=== PATIENT | female | born 1950 | race Caucasian/White ===

== ENCOUNTER → 2017-03-16 | Day surgery (SDC) | payer MEDICARE, OTHER ==
[~2017-03-16] VITALS: Ht 162.6 cm; Wt 45.5 kg
[2017-03-16] VITALS (9 sets, daily range): BP systolic 127–146; BP diastolic 66–98; PULSE 61–99; RESP 10–19; O2SAT 93–100
[~2017-03-16] MED LIST: Bupivacaine-MPF 0.5% 30 mL Inj NERVEBLOCK ONE; CHOL200025 PO; CeFAZolin 2 Gm/50 mL D5W IV Premix IV ONE; CeFAZolin Inj 2 gm / 50mL D5W IV ONE; Dexamethasone 4 mg/mL Inj IVPUSH PRN; Dexamethasone 4 mg/mL Inj ONE; EPHEDrine Sulfate 50 mg/mL Inj IVPUSH PRN; EPIN0.3P2 IJ; HYDROmorphone 1 mg/mL Inj IVPUSH PRN; IBUP-1827 PO; Ketamine 10 mg/mL 20 mL Inj ONE; Lactated Ringer's 1,000 ML IV SCH; Lactated Ringer's 500 ML IV PRN; MULT-1018 PO; Ondansetron 2 mg/mL 2 mL Inj IVPUSH PRN; Ondansetron 2 mg/mL 2 mL Inj ONE; Phenylephrine 10,000 mCg/mL Inj IVPUSH PRN; Propofol 10,000 mCg/mL 20 mL Inj ONE; VIT1TABL83 PO; fentaNYL-PF 50 mCg/mL 2 mL Inj ONE; oxyCODONE-Acetamin 5-325 mg Tablet PO ONE; oxyCODONE-Acetamin 5-325 mg Tablet PO PRN; vitamin c
[2017-03-16] MEDS: Lactated Ringer's 1,000 ML IV SCH ×2 (06:02→07:29)
--- NOTE | 2017-03-16 06:46 | PCM.HPANE ---
Patient Data Surgeon Admitting Provider: Attending Provider:Pipe Moore MD Primary Care Physician:Amy Quinonez PA-C Other Provider:Eugenie Siegel Anesthesia Reason for Visit Right First Metacarpal Fracture Ht/WT & BMI Height (Feet): 5 Height (Inches): 4 Weight (Kilograms): 45.54 Body Mass Index 17.00 Allergies Coded Allergies: codeine (Verified Allergy, Severe, hives / vomiting, 01/16/11) hydrocodone (Verified Allergy, Unknown, nausea, sweating, hives, 03/15/17) Uncoded Allergies: BEES STINGS (Allergy, Unknown, 03/15/17) Past Anesthesia History Anesthesia History: Denies:: Abnormal Airway, Anesthesia Reactions, Difficult Intubation, Fam Anesthesia Reaction, Malignant Hyperthermia Diabetes History Hx Diabetes?: No MRSA MRSA: No Medications Hypertension Medication: No Home Meds Incl Beta Matthew: No Reported Medications Cholecalciferol (Vitamin D3) (Vitamin D3)2,000 Unit Tablet2,000 Unit PO DAILY 03/15/17 [vitamin c] No Conflict CheckUnknown Dose DAILY 03/15/17 Vit B Comp/C/FA/Iron/Vit E (Vitamin B Complex Tablet)1 Each Tablet1 Each PO DAILY 03/15/17 Multivitamin (Multi Vitamin Daily)1 Each Tablet1 Each PO DAILY 30 Days Ref 0 03/15/17 Ibuprofen 600 Mg [id number] Mg PO QID PRN For Pain Ref 0 03/15/17 Epinephrine (Epipen 2-[place])0.3 Mg/0.3 Ml Auto.injct0.3 Mg IJ PRN For Anaphyllaxis 03/15/17 Discontinued Reported Medications Tramadol-Expunged Drug, Do Not Renew! (Ultram-Expunged Drug, Do Not Renew!)50 Mg Tab50 Mg PO PRN 01/16/11 IBUPROFEN-Expunged Drug, Do Not Renew! 800 Mg [id number] Mg PO PRN 01/16/11 History History of ENT Problems?: Yes HEENT History: Positive for:: Hearing Problem (hx menieres dx) Sinus Problem (hay fever allergies) Denies:: Abnormal Airway Cataracts Difficult Intubation Dysphagia Glaucoma TMJ Denture Type: Full- Upper Full- Lower Teeth Condition: No Teeth Hx of Heart Problems?: No Cardiovascular History: Denies:: AICD Abdominal Aortic Aneurism Atrial Fibrillation Edema Heart Murmur Hypertension Irregular Heartbeat Pacemaker Rheumatic Fever Hx of Respiratory Problem?: No Respiratory History: Positive for:: Pneumonia (remote hx of hx ) Denies:: Asthma COPD Emphysema Oxygen Administration Use of C-PAP Machine Hx Neurologic Problems?: Yes Neurological History: Positive for:: Headaches (several times weekly) Denies:: CVA Multiple Sclerosis Parkinson's Disease Seizures TIA Hx of GI Problems?: No Hx of Problems?: No Genitourinary History: Denies:: Kidney Stones Urinary Tract Infection Female Hx: Positive for:: Endometriosis Denies:: Currently (partial hysterectomy) Problems with Breasts? Skin History: Denies:: History Skin Disorders? Pressure Ulcers Hx Musculoskeletal Problems?: Yes Musculoskeletal History: Positive for:: Musculoskeletal Trauma (right 1st metacarpal fx-current admission problem) Osteoarthritis Denies:: Back Injury Degenerative Joint Fibromyalgia Joint Replacement Myasthenia Gravis Systemic Lupus Hx of Psycho/Social Problems?: No Psycho Social History: Denies:: Anxiety Hx Depression (situational with family deaths- ) Hx Surgeries?: Yes (tonsil, wrist surgery, partial hysterectomy) Hx Any Other Health Problems?: Yes Other History: Positive for:: Hospitalization Denies:: Cancer Endocrine Disease Thyroid Disease History Blood Transfusions: Positive for:: Accept Blood Products? Denies:: Blood Transfuse Reaction Blood Transfusions Hx Diabetes: No Hx Alcohol Use: YesAlcoholic Drinks Per Day: 3-4 drinks dailyHx Substance Use : NoHave You Smoked inLast 12 mo: Yes (1/2- 3/4 pack daily) Stop/Bang P-Blood Pressure: treated: No B- Body Mass Index > 35 kg/m2: No A- Age over 50: Yes N- Neck Large Circumference: No G- Gender Male: No Risk Assessment Category Category 1A: Patient has history of documented sleep apnea, and HAS NOT received any narcotic, sedative or anesthesia administration during this stay. Category 1B: Patient has history of documented sleep apnea, and HAS received any narcotic , sedative or anesthesia administration during this stay Category 2: Patient has SUSPECTED Obstructive Sleep Apnea, and HAS received any narcotic , sedative or anesthesia administration during this stay. Category 3: Patient has SUSPECTED Obstructive Sleep Apnea and HAS NOT received narcotic, sedative or anesthesia administration during this stay. Category 4: Outpatient in Procedural Areas with known sleep apnea or who screen positive for High Risk via the STOP/BANG questionnaire. Exam Exam General Appearance: Alert, Oriented X3, Cooperative, No Acute Distress HEENT/AIRWAY: MP 1 Lungs: Normal Air Movement Heart: Regular Rate/Rhythm Meds/Labs/Diagnostics Admission Meds Current Medications Lactated Ringer's (Lr) 1,000 ml @ 120 mls/hr [id number] IV Last administered on t 06:02; Start 03/16/17 at 05:00; Stop 03/16/17 at 13:19 Plan Impression Patient chart reviewed, patient interviewed and anesthestic plan with risks, benefits, and alternatives discussed, and informed consent obtained. NPO per Anesth. Guidelines: Yes ASA Physical Status: ASA2 Mod Systemic Disease Anesthetic Plan: MAC Bene/Risks/Altern/Consents: Yes HP Complete Prior to Induction: Yes Cristino Lobo MD Mar 16, 2017 06:46
[2017-03-16] MEDS: fentaNYL-PF 50 mCg/mL 2 mL Inj IVPUSH PRN ×2 (09:11→09:17)
--- NOTE | 2017-03-16 09:26 | PCM.ANEP1 ---
Post Anesthesia PACU Phase 1 Assessment Vital Signs Vital Signs Date Time Temp Pulse Resp B/P Pulse Ox O2 Delivery O2 Flow Rate FiO2 03/16/17 09:20 36.8 61 18 127/98 96 Room Air 03/16/17 09:15 65 17 142/66 96 Room Air 03/16/17 09:10 68 19 129/89 96 Room Air 03/16/17 09:05 99 17 146/77 99 Room Air 03/16/17 09:00 66 14 141/70 100 Room Air 03/16/17 08:58 36.5 66 10 140/67 100 Room Air 03/16/17 06:45 36.5 96 16 129/79 95 Room Air Anesthetic Administered: MAC Level of Alertness: Awake, talking Pain: Yes (Mild) Nausea or Vomiting: No CV Function & Hydration Stable: Yes Airway Device: None Oxygen Delivery: Simple Mask Lungs: Normal Air Movement PACU Phase 2 Assessment Complications: No Follow up Care: N/A Patient Instructions Provided: N/A Cristino Lobo MD Mar 16, 2017 09:26
--- NOTE | 2017-03-16 14:56 | DRSVH ---
PROCEDURE: X-RAY FINGERS, TWO VIEWS RIGHT INDICATIONS: RIGHT THUMB PERCUTANEOUS PINNING IN OR TECHNIQUE: AP hand, 2 views of the first finger(s) acquired. COMPARISON: [facility], CR, XR HAND 3VW RT, 03/13/2017, 12:58. FINDINGS: Bones: Improved alignment status post ORIF of first metacarpal base fracture. 2 surgical K wires hav e been placed in expected position. Soft tissues: No suspicious soft tissue calcifications. IMPRESSION: Improved alignment status post ORIF of intra-articular fracture involving the base of the first metacarpal. Dictated by: Kirk Raymond [facility] Interpreted: Nayely Jo MD on 03/16/2017 at 10:18 Approved by: Nayely Jo M.D. on 03/16/2017 at 14:54
--- NOTE | 2017-03-16 19:37 | OP ---
[address] [address] OPERATIVE REPORT PATIENT: IVIS FROST : 1950 MR#: [id number] ADMIT: 03/16/2017 JOB ID: [id number] DATE OF SURGERY: 03/16/2017 PREOPERATIVE DIAGNOSIS(ES): Displaced right proximal first metacarpal intra-articular fracture (Daley's fracture, ICD 10 code S62.2118.) POSTOPERATIVE DIAGNOSIS(ES): Displaced right proximal first metacarpal intra-articular fracture (Daley's fracture, ICD 10 code S62.2118.) PROCEDURE: Closed reduction, percutaneous pinning, right first metacarpal intra-articular fracture at the carpometacarpal joint consistent with a Daley's fracture, CPT code 32335. SURGEON: Pipe Moore MD. OBIEE OBIA SOLUTION ARCHITECT: None. ANESTHESIA: Metacarpal nerve block and IV sedation. ESTIMATED BLOOD LOSS: Less than 1 mL. DRAINS: None. COMPLICATIONS: None. INDICATIONS: A 66-year-old female fell, sustaining a displaced right 1st metacarpal intra-articular fracture at the 1st carpometacarpal joint consistent with a Daley's fracture. The patient was splinted and scheduled for surgery today. PROCEDURE: After patient was given appropriate IV sedation, a well-padded tourniquet was applied to the right upper extremity. After appropriate time-out was called I gave the patient a metacarpal nerve block with 0.5% plain Marcaine. The arm was then prepped and draped in sterile fashion. The arm was elevated, exsanguinated to 250 mmHg. A small incision was fashioned over the proximal aspect of the 1st metacarpal. The patient had very thin skin and did have some osteoporosis in the bone. Two 0.45 K-wires were placed, one from the base of the 1st metacarpal across the fracture into the base of the 2nd metacarpal and one K-wire placed from the proximal portion of the 1st metacarpal into the trapezium/trapezoid region. Image intensification confirmed good position of the K-wires. Permanent x-rays were taken. The pins were cut and bent under the skin. Care was taken to protect surrounding neurovascular structures. Sponge and needle count correct. No complications. Tourniquet released. Minimal hemostasis required. A few subcuticular sutures of 4-0 Vicryl were utilized. The skin was reapproximated with a few sutures of 4-0 nylon horizontal mattress type. Xeroform, dry sterile dressings were applied. The patient was placed in a thumb spica fiberglass splint. She was taken to recovery room in stable condition. Sponge and needle count correct. No complications. PLAN: The patient will be followed in the office in two weeks for suture removal. At that time, she will need to be placed in a short-arm thumb spica cast with the wrist in neutral and the thumb in just a comfortable position in opposition to the index finger. The patient needs to keep the splint clean and dry and not get the splint wet. Prescriptions for Keflex as well as Percocet were given to the patient. CC: [facility]
== END | disposition home or self-care (01) ==
LOC: SAS 05:55
PROVIDERS: ATTEND Orthopaedic Surgery
DX: S62.211A Bennett's fracture, right hand, initial encounter for closed fracture (principal); E51.2 Wernicke's encephalopathy; M19.90 Unspecified osteoarthritis, unspecified site; F17.210 Nicotine dependence, cigarettes, uncomplicated; F10.10 Alcohol abuse, uncomplicated; M81.0 Age-related osteoporosis without current pathological fracture; W10.8XXA Fall (on) (from) other stairs and steps, initial encounter; Y93.9 Activity, unspecified; Y92.9 Unspecified place or not applicable; Y99.8 Other external cause status; Z90.710 Acquired absence of both cervix and uterus
CPT/HCPCS: 26650; 73140; J0690; J1100; J1885; J2250; J2405; J2704; J3010; J7120